=== PATIENT | male | born 1985 | race Caucasian/White ===

== ENCOUNTER 2018-12-07 22:03 | Emergency (ER) | payer SELFPAY ==
[~2018-12-07] VITALS: Ht 170.2 cm; Wt 57.0 kg
[2018-12-08] MEDS ORDERED: MORPHINE SULFATE 4 MG/ML CPJ (NOT FOR IM USE) IV STA (00:23)
[2018-12-08] MEDS ORDERED: MAGNESIUM/ALUMINUM HYDROXIDE/SIMETHICONE 30ML UDC PO STA (00:23)
[2018-12-08] MEDS ORDERED: SODIUM CHLORIDE 0.9% 1,000 ML IV ONE (00:23)
[2018-12-08] MEDS ORDERED: METOCLOPRAMIDE HCL 10MG/2ML VIAL IV STA (00:23)
[2018-12-08 00:44] LABS: RED CELL DISTRIBUTION WIDTH 14.8 % (11.6-14.6)
[2018-12-08 00:51] LABS: CHLORIDE 102 mEq/L (98-107)
[2018-12-08 00:52] LABS: INR 1.1; PROTHROMBIN TIME 10.9 sec (9.6-11.0)
[2018-12-08 01:03] LABS: BASOPHILS % 0.3 % (0.0-2.0); EOSINOPHILS % 0.4 % (0.0-5.0); LYMPHOCYTES % 14.6 % (20.0-50.0); MONOCYTES % 5.5 % (2.0-8.0); NEUTROPHILS % 79.2 % (40.0-76.0)
[2018-12-08 01:12] VITALS: BP 112/63
[2018-12-08 01:31] LABS: HEMATOCRIT. 38.7 % (42.0-52.0); HEMOGLOBIN. 13.9 g/dL (14.0-18.0); MEAN CORPUSCULAR VOLUME 85.9 fL (80.0-94.0)
[2018-12-08 01:32] LABS: MEAN CORPUSCULAR HEMOGLOBIN 30.9 pg (28.0-32.0); PLATELET 272 x1000/uL (130-400)
[2018-12-08 01:33] LABS: MEAN PLATELET VOLUME 7.4 fl (7.4-10.4)
== END 2018-12-08 02:09 | disposition home or self-care (01) ==
LOC: ER 22:23
DX: R10.13 Epigastric pain (principal); F17.200 Nicotine dependence, unspecified, uncomplicated; F12.10 Cannabis abuse, uncomplicated
CPT/HCPCS: 36415; 80053; 83690; 85025; 85610; 96374; 96375; 99283; J2270; J2765; J7030